=== PATIENT | female | born 1965 | race Caucasian/White ===

== ENCOUNTER → 2024-03-25 18:12 | Outpatient (REF) | payer OTHER, SELFPAY | LOC: WDC 18:12 | PROVIDERS: ATTENDING PHYSICIAN Obstetrics & Gynecology Gynecology; FAMILY PHYSICIAN Internal Medicine | DX: Z12.31 Encounter for screening mammogram for malignant neoplasm of breast (principal) | CPT/HCPCS: 77063; 77067 ==

== ENCOUNTER → 2024-08-27 13:46 | Outpatient (REF) | payer SELFPAY | LOC: HWRAD 13:46 | PROVIDERS: ATTENDING PHYSICIAN Internal Medicine Cardiovascular Disease; FAMILY PHYSICIAN Internal Medicine | DX: I10 Essential (primary) hypertension (principal) | CPT/HCPCS: 75571 ==

== ENCOUNTER → 2024-09-29 08:06 | Outpatient (REF) | payer OTHER, SELFPAY | LOC: HWRAD 08:06 | PROVIDERS: ATTENDING PHYSICIAN Obstetrics & Gynecology Gynecology; FAMILY PHYSICIAN Internal Medicine | DX: Z78.0 Asymptomatic menopausal state (principal) | CPT/HCPCS: 77080 ==

== ENCOUNTER → 2024-10-27 06:22 | Day surgery (SDC) | payer OTHER, SELFPAY | LOC: GI 06:22 | PROVIDERS: ATTENDING PHYSICIAN Internal Medicine | DX: Z12.11 Encounter for screening for malignant neoplasm of colon (principal); Z86.0101 Personal history of adenomatous and serrated colon polyps; Z53.8 Procedure and treatment not carried out for other reasons | CPT/HCPCS: G0105 ==

== ENCOUNTER 2025-03-09 21:35 | Observation (INO) | payer OTHER, SELFPAY ==
[2025-03-09] VITALS (8 sets, daily range): BP systolic 136–158; BP diastolic 77–95; BMI 24.2; BMI 23.3
--- NOTE | 2025-03-09 17:36 | EDRN ---
Patient's RR 16-18 bpm, no respiratory distress, POX 100%
[2025-03-09 17:48] LABS: INR 0.94; PT 13.1 Sec (11.4-14.6)
[2025-03-09 17:51] LABS: ALT (SGPT) 48 U/L (0-35); AST (SGOT) 36 U/L (14-36); Albumin 4.4 g/dl (3.5-5.0); Alkaline Phosphatase 71 U/L (38-126); Blood Urea Nitrogen 19 mg/dl (7-17); Calcium 8.8 mg/dl (8.4-10.2); Carbon Dioxide 27 mmol/L (22-30); Chloride 105 mmol/L (98-107); Estimated Creatinine Clearance 76 ml/min; Glucose 82 mg/dl (70-99); Potassium 3.8 mmol/L (3.5-5.1); Sodium 139 mmol/L (135-145); Total Bilirubin 0.3 mg/dl (0.2-1.3); Total Protein 7.4 g/dl (6.3-8.2); eGFR > 60.00
--- NOTE | 2025-03-09 17:51 | ED.GENMED ---
History of Present Illness
General
Chief Complaint: Chest Pain
Time Seen by Provider: 03/09/25 17:32
History of Present Illness
History of Present Illness:
Patient is a 59-year-old female with history of hypertension, hyperlipidemia, obesity on Zepbound presenting to the emergency department with chest pain. Patient states that she woke up at 8:30 AM developed intermittent sharp stabbing pain to the
left side of her chest. Around 1 PM the chest pain turned to tightness and radiated to her shoulder. Around 3:30 PM she developed paresthesias to her neck and shoulder. T she does state that the pain radiates to her back. He symptoms are not
exertional. She denies any pleuritic pain. She is on estrogen patches. She does have family history of cardiac disease. She follows with Dr. Joel from cardiology and did have an abnormal stress test 6 years ago that she had a stress echo
completed which was normal. She is supposed to get a stress test completed but has not scheduled it.
Past History
Past History
ED Past Medical History: Fibromyalgia, HTN, Hypercholesterolemia and Psychiatric (depression); Negative Asthma or NIDDM
ED Past Surgical History: None
Social History
Tobacco: Non-smoker
Alcohol: Occasional
Personal:
Living: with family
Employment: Employed
Phy Exam
Physical Exam
Physical Exam:
GENERAL: in no acute distress
HEENT: normocephalic, extraocular movements intact, moist oral mucosa
NECK: normal inspection
RESPIRATORY: no respiratory distress, clear to auscultation bilaterally
CARDIOVASCULAR: regular rate and rhythm, 2+ radial pulses bilaterally
ABDOMEN/: soft, non-distended, non-tender to palpation, no rebound or guarding
EXTREMITIES: non-tender, no edema/swelling
NEUROLOGIC: awake and alert, moves all extremities
SKIN: warm
Scores
Heart Score for Chest Pain Patients
STEMI patient?: No
History: Moderately Suspicious
ECG: Nonspecific Repolarization
Age: >45 - <65 years
Risk Factors: >/= 3 Risk Factors or History of CAD
Troponin: </= Normal Limit
Heart Score for Chest Pain Patients: 5
Heart Score Risk: 20.3% MACE over next 6 weeks
Course
Orders/Labs/Results
Orders:
Orders
03/09/25 16:56
Electrocardiogram (*1) Urgent
Reason for Study: Chest Pain
EKG- Treatment ONCE
03/09/25 17:13
Electrocardiogram (*1) Urgent
Reason for Study: Chest Pain
EKG- Treatment ONCE
03/09/25 17:15
Cardiac Monitoring- Treatment ONCE
IV Insert/Care/Rem.- Treatment PRN
03/09/25 17:27
Complete Blood Count/With Diff Urgent
Comprehensive Metabolic Panel Urgent
Prothrombin Time Urgent
Troponin I Urgent
03/09/25 17:39
CT Angio Chest/Abd W/Wo Iv Contrast [CT Chest/abd Angio W/wo Iv Con] Urgent
Comment:
Reason For Exam: r/o dissection, PE risk factors
03/09/25 18:46
EKG- Treatment ONCE
03/09/25 20:30
Electrocardiogram (*1) Urgent
Reason for Study: Chest Pain
Troponin I Urgent
Abnormal Lab Results
03/09/25
17:27
Absolute Lymphs (auto) 4.2 H 10^3/uL
(1.2-3.4)
Absolute Monos (auto) 0.8 H 10^3/uL
(0.1-0.6)
BUN 19 H mg/dl
(7-17)
ALT 48 H U/L
(0-35)
03/09/25 17:27
03/09/25 17:27
Vital Signs
Initial and Last Documented VS:
Initial Vital Signs
Temp Pulse Resp BP Pulse Ox
98.4 F 71 16 158/94 98
03/09/25 17:08 03/09/25 17:08 03/09/25 17:08 03/09/25 17:08 03/09/25 17:08
Last Documented Vital Signs
Temp Pulse Resp BP Pulse Ox
98.4 F 82 14 143/77 98
03/09/25 17:08 03/09/25 18:45 03/09/25 18:45 03/09/25 18:00 03/09/25 17:08
MDM/Problems Addressed
Differential Diagnosis Includes:
Patient is a 59-year-old woman with history of hypertension, hyperlipidemia, obesity onset bowel presenting to the emergency department with chest pain. On arrival vitals unremarkable and exam is reassuring. Per nursing patient did have a pale
appearance to her in triage. During my evaluation that did resolve. Concern for ACS versus dissection versus PE. Initial EKG per my interpretation with T wave inversions anteriorly and lateral depression. Repeat EKG was completed in about 10
minutes that did show resolution of her T wave inversion. Will check blood work including troponin and obtain CT dissection protocol given the paresthesias patient is having on the radiation to the back.
*Critical Care Note
Total Time (30-74mins, 75-104mins- exclusive of procedures): Not Applicable
Update Note
Update Note:
Initial blood work unremarkable. I did discuss with Dr. Joel from cardiology who is in agreement with admission for serial troponin and CTA.
1930 -patient with recurrent chest pressure that radiates down her left arm. She states it is 1 out of 10. Repeat EKG per my interpretation with no significant ST changes. Will give aspirin once official CT read is completed. Delta troponin
pending. CTA per my interpretation with no obvious dissection or saddle PE. Discussed with hospitalist who accepeted patient to their service.
ED Attending Note
-
Portions of this chart may have been created with voice recognition software.� Occasional wrong word or��sound alike� substitutions may have occurred due to the inherent limitations of voice recognition software.
Discharge Plan
Departure
Patient Disposition: Admit
Date of Disposition: 03/09/25
Time of Disposition: 19:49
Presentation/result/management discussed w/ accepting MD/DO: Hospitalist
Discharge Problem:
Chest pain
Prescriptions:
No Action
valsartan 80 MG tablet
80 mg PO DAILY
cetirizine [Zyrtec] 10 MG tablet,disintegrating
10 mg PO DAILY
Effexor
270 mg PO DAILY
Referrals:
Hemalatha Medina DO [Family Provider, Internal Medicine]
Interventions
Interventions:
*Risk Screen - Suicide Last Done: 03/09/25 17:29
*General Assessment Last Done: 03/09/25 17:29
*Neglect/Abuse Screening Last Done: 03/09/25 17:29
*ED- Fall Risk Assessment Last Done: 03/09/25 17:29
*ED COVID-19 Vaccine History Last Done: 03/09/25 17:29
ED- Cardiac Assessment Last Done: 03/09/25 17:33
Discharge Date and Time
Print Language: RUSSIAN
[2025-03-09 18:02] LABS: Troponin I < 0.012 ng/ml
[2025-03-09 18:14] LABS: % Basophils 0.4 % (0-2); % Eosinophils 1.4 % (0-6); % Immature Granulocytes 0.2 % (0-0.5); % Lymphocytes 39.5 % (20.5-51.1); % Monocytes 7.2 % (1.7-9.3); % Neutrophils 51.3 % (42.2-75.2); Absolute Eosinophils 0.2 10^3/uL (0-0.7); Absolute Lymphocytes 4.2 10^3/uL (1.2-3.4); Absolute Monocytes 0.8 10^3/uL (0.1-0.6); Absolute Neutrophils 5.5 10^3/uL (1.4-6.5); Hematocrit 38.9 % (37.0-47.0); Hemoglobin 13.1 g/dL (12.0-16.0); Mean Corp Hgb Conc. 33.7 g/dL (33.0-37.0); Mean Corpuscular Volume 92.2 fL (81.0-99.0); Mean Platelet Volume 9.6 fL (7.4-10.4); Nucleated Red Blood Cells % 0 %; Platelet Count 266 10^3/uL (130-400); Red Blood Cell Count 4.22 10^6/uL (4.20-5.40); Red Cell Dist. Width 13.2 % (11.5-14.5); White Blood Cell Count 10.6 10^3/uL (4.8-10.8)
--- NOTE | 2025-03-09 20:57 | HPS.HSE ---
Family Physician
-
Family Physician: Hemalatha Medina
Chief Complaint
-
Chest pain
History of Present Illness
This is a 59-year-old with past medical history of hyperlipidemia, depression/anxiety, prior history of hypertension and no cardiac history presenting to the emergency department with chest pain and paresthesias.
She reported that she was in usual state of health up until this morning. When she awoke this morning she noted that when she moves around objects she felt some shortness of breath. Then she started having intermittent sharp stabbing pain
substernally lasting a few minutes and then coming back. This process lasted several minutes and then she started getting chest tightness. The chest tightness lasted few hours till around 1 to 2 PM. At that time patient noticed's numbness
sensation that went up to left posterior neck and then down to her left shoulder. It did not go down to her hands or fingers. She denied any weakness. She denied having palpitations lightheadedness or dizziness. She denied any nausea vomiting or
diaphoresis.
/Patient reported that she had last stress test/echocardiogram in 2019 which was unremarkable. She notes family history of her father with MS in his 30s.
In the emergency department she was afebrile with a blood pressure of 143/85 pulse of 70 and she was satting 98% on room air. Troponin was negative. She had an ECG which showed normal sinus rhythm with initial T wave inversions in the anterior
leads with mild developing ST depression but did not meet criteria for ST depression. Repeat EKG was normal. CBC was unremarkable. Electrolytes BUN/creatinine were all in the normal range. Chest x-ray shows no acute infiltrates. She had a CT
chest with angiogram which was negative for dissection aneurysm or hematoma, there was no pulmonary embolism.
Medical History
Past Medical History
Past Medical History: Reports Hypercholesterolemia and Psychiatric
Past Surgical History: Reports None
Social History
Tobacco: Non-smoker
Alcohol: Occasional
Drug: None
Living: With Family
Employment: Employed
Family History
Family History: Early CAD (Father with MS in his 30s)
Allergies / Home Medications
Allergies reflects when Allergies were last updated in [facility].
Home Medications with original date entered in [facility]
Allergy/Medication List:
Allergies
Allergy/AdvReac Type Severity Reaction Status Date / Time
Sulfa (Sulfonamide Allergy Unknown Verified 03/09/25 17:12
Antibiotics)
sulfadiazine Allergy Unknown Verified 03/09/25 17:12
Home Medications
estradiol 0.0375 mg/24 hr semiweekly transdermal patch 1 patch transdermal Q2W 03/09/25
progesterone micronized 100 mg capsule 100 mg PO DAILY 03/09/25
rosuvastatin 20 mg tablet 20 mg PO QHS 03/09/25
venlafaxine 225 mg tablet,extended release 24 hr 225 mg PO DAILY 03/09/25
Review of Systems
-
Constitutional: Reports No Symptoms
EENT: Reports No Symptoms
Respiratory: Reports No Symptoms
Cardiac: Reports Chest Pain
Abdomen/GI: Reports No Symptoms
: Reports No Symptoms
Musculoskeletal: Reports No Symptoms
Skin: Reports No Symptoms
Neurological: Reports No Symptoms
Endocrine: Reports No Symptoms
Hematologic/Lymphatic: Reports No Symptoms
Psych: Reports No Symptoms
Physical Exam
Vital Signs
Vital Signs
Temp Pulse Resp BP Pulse Ox
98.4 F 74 12 143/85 98
03/09/25 17:08 03/09/25 20:15 03/09/25 20:15 03/09/25 20:00 03/09/25 17:08
Physical Exam
General: Well Developed, Well Nourished and No Apparent Distress
HEENT: NormoCephalic, Moist mucous membranes and Atraumatic
Respiratory: Clear
Cardiac: S1/S2 and Regular Rhythm; No Murmur or Rub
GI: Soft, Non Tender, Non Distended and Normal Bowel Sounds; No Organomegaly
Rectal: Deferred by Provider
Musculoskeletal: No Clubbing, No Cyanosis and No Edema
Skin: No Rash
Neuro: Nonfocal/grossly intact
Laboratory Results
-
03/09/25 17:27
03/09/25 17:
Laboratory Results
PT 13.1 Sec (11.4-14.6) 03/09/25 17:
INR 0.94 03/09/25 17:
Total Bilirubin 0.3 mg/dl (0.2-1.3) 03/09/25 17:
AST 36 U/L (14-36) 03/09/25 17:
ALT 48 U/L (0-35) H 03/09/25 17:
Alkaline Phosphatase 71 U/L (38-126) 03/09/25 17:
Troponin I < 0.012 ng/ml 03/09/25 17:
Data Reviewed
-
CT Scan: Report Reviewed by me
Medical Tests (Nuc Med, Echo, EKG etc): Image Personally Visualized and interpreted
Lab Data: Labs Reviewed by me
Old Records: Reviewed
Impression/Plan
-
IMPRESSION:
Is a 59-year-old with past medical history of hyperlipidemia, for history of hypertension status post weight loss now off antihypertensives, no history of CAD diabetes presenting to the emergency department with episode of chest pain that started
this a.m. persisted for several hours and now resolved completely. It was associated with paresthesias to the left neck and shoulder without any weakness or numbness. This is also resolved. Transient T wave inversion in the anterior leads on ECG.
Negative troponin. No evidence of PE or dissection.
PLAN:
Chest pain -atypical chest pain possibly cardiac
-Admit to telemetry observation
-Aspirin 324 x 1
-Trend troponin
-Patient already on high-dose rosuvastatin, Repatha, but will check lipid panel
-ESR CRP
-Echocardiogram in a.m.
-If all prior testing negative, consider inpatient or outpatient stress test
-Low-cholesterol diet for now
DVT prophylaxis�SCDs
CODE STATUS�full code
[2025-03-09 21:20] LABS: Troponin I < 0.012 ng/ml
[2025-03-09] MEDS: LOW STRENGTH ASPIRIN 324 MG PO (21:30)
[2025-03-09] MEDS: CRESTOR 20 MG PO (23:08)
[2025-03-09 23:47] LABS: Troponin I < 0.012 ng/ml
[2025-03-10 03:00] VITALS: BP 125/75
[2025-03-10 07:00] VITALS: BP 125/81
--- NOTE | 2025-03-10 07:26 | CON.CAR ---
Addendum entered and electronically signed by Aftab Forte MD 03/10/25 12:32:
59-year-old woman with marked hypercholesterolemia, recent LDL of 220, calcium score of 104 now on Repatha and rosuvastatin, father with first cardiac event in his 30s, admitted yesterday with chest discomfort, no EKG changes and undetectable
troponin. Previously recommended to get stress echocardiogram for chest discomfort, not yet performed.
PMH: History of obesity, now on tirzepatide, hypertension, depression, severe hypercholesterolemia
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
FH: Father with first cardiovascular event in his 30s
125/81, pulse 60s, weight is 69.6 kg per, head neck exam unremarkable, lungs are clear, very soft systolic murmur at apex, abdomen benign, extremities without clubbing cyanosis or edema
CTA of chest abdomen pelvis no acute abnormalities
BUN/creatinine are 16 and 0.8, ALT is 48, TSH pending, LDL is 47
EKG sinus rhythm incomplete right bundle branch block, possible left atrial enlargement
Stress echocardiogram 2019: Mild chest discomfort, normal stress echo imaging, nonspecific T wave changes with exercise
Echocardiogram 2019: Essentially normal
CT scan head: Unremarkable
Impression:
Chest pain, likely noncardiac
Hypercholesterolemia
Neck pain
Elevated coronary artery calcium score
History of obesity, with 90 pounds weight loss
At present, she looks well without EKG changes and negative troponin.
Previously she had been recommended to undergo stress test. We can arrange for an outpatient sestamibi study with cardiology follow-up.
D-dimer is negative.
Her LDL cholesterol is excellent. She has no acute EKG changes.
We will review her echocardiogram.
Okay for discharge, I would changed her admission medications.
Sestamibi study for next week is arranged, will arrange for outpatient follow-up.
Original Note:
Consultation
Consultation Request
Date/Time Consultation Requested: 03/09/25 at 2151
Date/Time Consultation Performed: 03/10/25 at 0827
Requesting Provider: Dr. Lester
Performing Provider: Dr. LIAM Forte
Reason for Consultation: Chest pain
Medical History
-
History of Present Illness:
Patient came to the ER last night with complaints of chest pain and left neck paresthesias and was admitted for possible ACS and cardiology is now consulted. Patient was last seen in the cardiology office on 09/16/2024 and at that time complained of
NEVAREZ and atypical chest pain, she was recommended stress echo given history of abnormal calcium score of 104.2 with with distribution mostly in the LAD. Patient reports that she had also around that time lost weight and her usual dose of losartan 25
mg daily was stopped and this seemed to improve her symptoms and so that combined with a busy life led to her not completing the stress echo as planned. Patient does not exercise on a regular basis, but going up and down the stairs in her home over
the last 3 weeks she has had NEVAREZ. She had sharp left-sided chest pain starting yesterday morning that lasted less than 1 hour. A few hours later she had a stronger ache extending from her left chest into the left shoulder and then up the left side
of her neck. She then started with some paresthesias in the left side of her neck described as a numbness and she was worried and came to the ER. She was given aspirin. The pain resolved and has not recurred, but she continues with a numbness in
the left side of her neck. Patient has a family history of premature CAD, her father had an ME at age 38. She has no siblings. Her paternal grandfather also at an early age from CAD. She has hyperlipidemia and her LDL was 114 despite
Crestor 40 mg daily and she was agreeable to start Repatha. She has been on Repatha for a few months now and her LDL is 47, her outpatient dose of Crestor was decreased to 20 mg daily prior to this admission.
PMH:
Abnormal EKG
Hyperlipidemia
Elevated calcium score
Past Medical History
Past Medical History: Other (in HPI)
Past Surgical History: None
Social History
Tobacco: Non-Smoker
Alcohol: Occasional (less than once a month)
Drug: None
Personal:
Employment: Employed
Family History
Family History: Early CAD (father with ME in his 30s), CAD and Diabetes
Allergies / Home Medications
Allergy/AdvReac Type Severity Reaction Status Date / Time
Sulfa (Sulfonamide Allergy Unknown Verified 03/09/25 21:54
Antibiotics)
sulfadiazine Allergy Unknown Verified 03/09/25 21:54
�Medication �Instructions �Recorded �Confirmed �Type
estradiol 0.0375 mg/24 hr 1 patch transdermal Q2W 03/09/25 03/09/25 History
semiweekly transdermal patch
progesterone micronized 100 mg 100 mg PO DAILY 03/09/25 03/09/25 History
capsule
rosuvastatin 20 mg tablet 20 mg PO QHS 03/09/25 03/09/25 History
venlafaxine 225 mg tablet,extended 225 mg PO DAILY 03/09/25 03/09/25 History
release 24 hr
Review of Systems
-
History Source: Patient
All other systems: Negative unless noted
Physical Exam
Vital Signs
Temp Pulse Resp BP Pulse Ox
98.0 F 79 14 125/75 99
03/10/25 03:00 03/10/25 03:00 03/10/25 03:00 03/10/25 03:00 03/10/25 03:00
GEN: NAD. AAOx3
HEENT: EOMI, MMM
LUNGS: RA. CTA B/L, no wheeze
CV: SR on tele. Reg, S1/S2, no murmur
ABD: soft, BS+, NT, ND
EXT: No clubbing, cyanosis, lesions or edema B/L
NEURO: Gross non-focal
SKIN: Warm, dry and pink. No rash
Lab Results
03/09/25 17:27
Troponin I Cancelled 03/10/25 02:30
Impression / Plan
-
PCP: Dr. Medina
Card: / Héctor
Impression:
Admitted with chest pain and left neck paresthesias 03/09/25
Abnormal EKG
Hyperlipidemia
Elevated calcium score
Echo 09/17/2019: EF 55 to 60%, no significant valve disease
Echo 03/10/2025: Preliminary report, preserved EF without significant valve disease
Plan:
-Patient came to the ER last night with complaints of chest pain and left neck paresthesias and was admitted for possible ACS and cardiology is now consulted. Patient was last seen in the cardiology office on 09/16/2024 and at that time complained
of NEVAREZ and atypical chest pain, she was recommended stress echo given history of abnormal calcium score of 104.2 with with distribution mostly in the LAD. Patient reports that she had also around that time lost weight and her usual dose of losartan
25 mg daily was stopped and this seemed to improve her symptoms and so that combined with a busy life led to her not completing the stress echo as planned. Patient does not exercise on a regular basis, but going up and down the stairs in her home
over the last 3 weeks she has had NEVAREZ. She had sharp left-sided chest pain starting yesterday morning that lasted less than 1 hour. A few hours later she had a stronger ache extending from her left chest into the left shoulder and then up the left
side of her neck. She then started with some paresthesias in the left side of her neck described as a numbness and she was worried and came to the ER. She was given aspirin. The pain resolved and has not recurred, but she continues with a
numbness in the left side of her neck. Patient has a family history of premature CAD, her father had an ME at age 38. She has no siblings. Her paternal grandfather also at an early age from CAD. She has hyperlipidemia and her LDL was 114
despite Crestor 40 mg daily and she was agreeable to start Repatha. She has been on Repatha for a few months now and her LDL is 47, her outpatient dose of Crestor was decreased to 20 mg daily prior to this admission.
-ECG reviewed by me is SR with nonspecific ST-T wave changes
-Patient with left-sided chest pain and NEVAREZ prior to admission. Troponin serially undetectable.
-Given recurrent chest pain and abnormal calcium score showing a moderate plaque burden mostly in the LAD we recommend an exercise nuclear stress test. Expect the patient will be able to exercise on treadmill and will not need pharmacologic study.
-Echo prelim is preserved EF
-Will arrange for outpatient exercise nuclear stress test and cardiology f/u
[2025-03-10 07:48] LABS: Blood Urea Nitrogen 16 mg/dl (7-17); Calcium 8.7 mg/dl (8.4-10.2); Carbon Dioxide 29 mmol/L (22-30); Chloride 109 mmol/L (98-107); Estimated Creatinine Clearance 77 ml/min; Glucose 86 mg/dl (70-99); HDL Cholesterol 51 mg/dl; LDL Cholesterol, Calculated 47 mg/dl; Magnesium 2.2 mg/dl (1.6-2.3); Potassium 4.4 mmol/L (3.5-5.1); Sodium 142 mmol/L (135-145); Total Cholesterol 110 mg/dl (50-199); Triglyceride 63 mg/dl (10-149); Very Low Density Lipoprotein 12 mg/dl (0-30); eGFR > 60.00
[2025-03-10] MEDS: EFFEXOR XR 225 MG PO (08:41)
[2025-03-10] MEDS: LOW STRENGTH ASPIRIN 81 MG PO (08:43)
[2025-03-10 09:09] LABS: Glycohemoglobin (HgbA1c) 5.1 % (4.0-5.6)
--- NOTE | 2025-03-10 09:58 | W.PN.HOSP.TC ---
Today's Communication/Plan
-
see PN
Assessment / Plan
Assessment / Plan
59yo F with PMHX of depression, HLD came with episode of retrosternal pain resolved in 1 hour but followed by some numbness over L shoulder and L neck, lasted for couple of hours. She is already under care of mechanical car checker George.Sheiring due to Hx of
chest paoin and resistant HLD, SHe intentionally lost her weight last year that allowed her to stop her BP meds. Troponin neg and EKG without new ACS changes. Symptoms entirely resolved
A/P:
#Chest pain
#HLD
Serial trop
ASA, cont statin
Cardio consult
Echo
#L neck and L shoulder transient numbness
no neurological deficit on the next day after admission
With Hx of significant HLD - will favor basic w/u for neurologic reason.
US carotid
Echo as mentioned before
telemetry without clinically significant arrhythmia
Head CT and carotid US reasonable as might change mgmt
Brain MRI - patient requested as outpatient, which is appropriate (Rx provided) since it would be diagnostic
cont ASA, statin for prevention
#MDD
cont home meds
DVT ppx SCDs
Full code
I have spent at least 57min reviewing chart, test results, communication with consultantants and providing direct patient care
Anticipated Discharge: Within 24 hours
Subjective/Interval History
-
Date of Service: March 10, 2025
Objective Data
-
Labs:
Laboratory Results
03/10/25
06:47
Sodium 142
Potassium 4.4
Chloride 109 H
Carbon Dioxide 29
BUN 16
Creatinine 0.8
Glucose 86
Calcium 8.7
Vital Signs:
Vital Signs
Temp Pulse Resp BP Pulse Ox
97.6 F 69 16 125/81 99
03/10/25 07:00 03/10/25 07:00 03/10/25 07:00 03/10/25 07:00 03/10/25 07:00
I&O
03/09/25 03/10/25 03/11/25
06:59 06:59 06:59
Intake Total 480 / 480
Balance 480 / 480
Review of Systems
-
History Source: Patient
All other systems: Reviewed and negative
Physical Exam
-
General: No Apparent Distress
HEENT: Normocephalic
Respiratory: Clear to Auscultation
Cardiac: Regular Rhythm
Neuro: Awake, Alert, Oriented, AO x 3, No Motor Deficits, Nonfocal/Grossly Intact and No Sensory Deficits
Psych: Calm
[2025-03-10 10:36] LABS: TSH Reflex To Free T4 7.39 uIU/ml (0.47-4.68)
[2025-03-10 11:00] VITALS: BP 122/84
[2025-03-10 11:04] LABS: Free T4 0.98 ng/dl (0.78-2.19)
--- NOTE | 2025-03-10 12:35 | W.DCSUMMARY ---
Discharge Summary
Discharge Data
Date of Admission: 03/09/25
Date of Discharge: 03/10/25
-
Pending Results: No
Hospital Course
59yo F with PMHX of depression, HLD came with episode of retrosternal pain resolved in 1 hour but followed by some numbness over L shoulder and L neck, lasted for couple of hours. She is already under care of chargeback analyst George.Sheiring due to Hx of
chest paoin and resistant HLD, SHe intentionally lost her weight last year that allowed her to stop her BP meds. Troponin neg and EKG without new ACS changes. Symptoms entirely resolved. Personal Injury Legal Assistant will schedule for outpatient stress test and
approved D/C. MRI of the brain as outpatient as Carotid US neg. ASA to be started for secondary prevention. Medically stable for d/c home
I have spent at least 57min reviewing chart, test results, communication with consultants and providing direct patient care
Patient was managed for:
#Chest pain
#HLD
#Subclinical hypothyroidism - known to patient, currently asymptomatic, will provide outpatient endo consult and no direct benefit for starting Synthroid at this time
#L neck and L shoulder transient numbness
#MDD
#Subclinical hypothyroidism
Discharge Plan
-
Others Tests: -You are scheduled for an exercise nuclear stress test at [facility] on , 03/17/25 at 7 AM. Please arrive in the main lobby for central registration about 10 minutes before your test and then you will be
directed to the cardiac services department. Bring the order slip with you. The cardiology office is working on prior authorization from your insurance.
Referrals:
Hemalatha Medina DO [Family Provider, Internal Medicine]
Renae Anaya DO [Active, Cardiology]
Referral Note: The cardiology office is working on a follow-up appointment and we will call you with that appointment.
Additional Discharge Medication Instructions: -Start taking an aspirin 81 mg daily until your stress test results are reviewed with you.
-Continue your usual doses of Crestor (rosuvastatin) and Repatha
Prescriptions:
New
aspirin 81 mg Tablet,Chewable
81 mg PO DAILY Qty: 30 0RF
Repatha SureClick 140 mg/mL pen injector
140 mg SC Q2W Qty: 1 0RF
Continued
rosuvastatin 20 mg Tablet
20 mg PO QHS
No Action
estradiol 0.0375 mg/24 hr Patch Semiweekly
1 patch TRANSDERMAL Q2W
progesterone micronized 100 mg Capsule
100 mg PO DAILY
venlafaxine 225 mg Tablet Extended Release 24hr
225 mg PO DAILY
Discharge Date and Time
Print Language: CUBAN
--- NOTE | 2025-03-10 13:13 | CM ---
assistant maintenance manager reviewed patient's chart and patient was admitted under OBS, OBS letter signed and placed on chart. Patient lives alone is independent with adl's and ambulation, no dme, drives, home when stable, no needs.
PCP: Hemalatha Medina
Pharmacy: [facility]
Plan; Home no needs.
== END 2025-03-10 13:45 | disposition home or self-care (01) ==
LOC: 4 WEST ACU 21:35
PROVIDERS: ADMITTING PHYSICIAN Internal Medicine; ATTENDING PHYSICIAN Internal Medicine; EMERGENCY PHYSICIAN Student in an Organized Health Care Education/Training Program; FAMILY PHYSICIAN Internal Medicine; OTHER PHYSICIAN Internal Medicine Cardiovascular Disease
DX: R07.89 Other chest pain (principal); E78.00 Pure hypercholesterolemia, unspecified; R20.2 Paresthesia of skin; F32.9 Major depressive disorder, single episode, unspecified; M79.7 Fibromyalgia; R06.02 Shortness of breath; F41.9 Anxiety disorder, unspecified; M54.2 Cervicalgia; M48.54XA Collapsed vertebra, not elsewhere classified, thoracic region, initial encounter for fracture; R20.0 Anesthesia of skin; I10 Essential (primary) hypertension; E03.8 Other specified hypothyroidism; I49.8 Other specified cardiac arrhythmias; I45.10 Unspecified right bundle-branch block; I25.10 Atherosclerotic heart disease of native coronary artery without angina pectoris; E66.9 Obesity, unspecified; Z68.23 Body mass index [BMI] 23.0-23.9, adult; Z88.2 Allergy status to sulfonamides; Z79.85 Long-term (current) use of injectable non-insulin antidiabetic drugs; Z82.49 Family history of ischemic heart disease and other diseases of the circulatory system; Z79.890 Hormone replacement therapy; Z79.899 Other long term (current) drug therapy; Z83.3 Family history of diabetes mellitus; Z60.2 Problems related to living alone
CPT/HCPCS: 70450; 71275; 74175; 80048; 80053; 80061; 83036; 83735; 84439; 84443; 84484; 85025; 85610; 93005; 93306; 93880; 99285; G0378; Q9967

== ENCOUNTER → 2025-03-17 06:53 | Outpatient (REF) | payer OTHER, SELFPAY | LOC: RCS 06:53 | PROVIDERS: ATTENDING PHYSICIAN Internal Medicine Cardiovascular Disease; FAMILY PHYSICIAN Internal Medicine | DX: I25.9 Chronic ischemic heart disease, unspecified (principal); R93.1 Abnormal findings on diagnostic imaging of heart and coronary circulation; I25.10 Atherosclerotic heart disease of native coronary artery without angina pectoris; R06.09 Other forms of dyspnea | CPT/HCPCS: 78452; 93017; A9500 ==

== ENCOUNTER → 2025-03-28 18:38 | Outpatient (REF) | payer OTHER, SELFPAY | LOC: WDC 18:38 | PROVIDERS: ATTENDING PHYSICIAN Obstetrics & Gynecology Gynecology | DX: Z12.31 Encounter for screening mammogram for malignant neoplasm of breast (principal) | CPT/HCPCS: 77063; 77067 ==